=== PATIENT | male | born 1995 | race Caucasian/White ===

== ENCOUNTER 2019-10-01 14:24 | Emergency (ER) | payer OTHER ==
--- NOTE | 2019-10-01 14:40 | ED Physician Documentation ---
History of Present Illness - Stated complaint Stated Complaint: RT HAND PX - Chief complaint Chief Complaint: Trauma Ext - Additonal information Additional information: This is a 24-year-old male presents with right hand his hand against a door around 1 week and impacted mostly area of his fifth and fourth metacarpals midshaft region. He had some pain immediately afterwards and is persisted throughout the week. He is tried some Tylenol intermittently without significant relief. He denies any weakness or numbness. Review of Systems Skin: denies: Laceration (s) Musculoskeletal: reports: Extremity pain PD PAST MEDICAL HISTORY - Allergies Allergies/Adverse Reactions: Allergies Allergy/AdvReac Type Severity Reaction Status Date / Time naproxen Allergy Rash Verified 10/01/19 14:35 - Social History Does the pt have substance abuse?: No - Family History Family history: reports: Non contributory PD ED PE NORMAL - General General: Alert and oriented X 3 - HEENT HEENT: Atraumatic - Cardiac Cardiac: Strong equal pulses - Respiratory Respiratory: No respiratory distress - Extremities Extremities: Other (Right hand is symmetric in appearance to the left and is atraumatic. Patient has full range of motion of P and DIP joints in all digits. He does have some tenderness over the mid fourth and fifth metacarpal, no crepitus felt. There is no overlying skin lesion or contusion. His scaphoid distal radius and distal ulna are atraumatic and nontender.) Results - Vitals Vitals: Vital Signs - 24 hr 10/01/19 14:35 Temperature 36.7 C Heart Rate 86 Respiratory 15 Rate Blood Pressure 141/73 H O2 Saturation 98 Oxygen O2 Source Room air PD MEDICAL DECISION MAKING - ED course ED course: Patient presents with pain in his fourth and fifth right metacarpals. His hand is neurovascularly intact. There is no palpable crepitus. X-rays are obtained which do not show any acute osseous abnormality. I discussed supportive care with the patient and the possibility of occult fracture and follow-up with his primary care provider in 1 week if he is not having improved symptoms. Patient agrees with this plan and was discharged home. Departure - Departure Disposition: 01 Home, Self Care Clinical Impression: Hand pain Qualifiers: Laterality: right Qualified Code(s): M79.641 - Pain in right hand Condition: Good Follow-Up: LILLIAM SANCHES III, MD [Primary Care Provider] - Within 1 week (If having persistent symptoms) Comments: You were seen today for pain in your hand, the x-ray does not show any signs of fractures or other obvious bone abnormalities. I think is likely that you have a contusion or bruise of the bone. However if you are having continued not improving pain in 1 week please follow-up with your primary care provider for reevaluation and consideration of a repeat x-ray.
--- NOTE | 2019-10-01 15:20 | XRAY Report ---
Reason: Right hand pain after impact 1 week ago Procedure Date: 10/01/2019 Accession Number: [id number] / [id number] Procedure: XR - Hand 3 View RT CPT Code: Final Report FULL RESULT: EXAM: RIGHT HAND RADIOGRAPHY EXAM DATE: 10/01/2019 02:54 PM. CLINICAL HISTORY: Right hand pain after impact injury 1 week ago. COMPARISON: None. TECHNIQUE: 3 views. FINDINGS: Bones: No fracture or bone lesion. Joints: Normal. No subluxations. Soft Tissues: Normal. No evident focal soft tissue swelling. IMPRESSION: Normal hand radiography. [facility]
[2019-10-01 15:32] VITALS: BP 137/70
== END 2019-10-01 15:33 | disposition home or self-care (01) ==
LOC: ED 14:24
DX: M79.641 Pain in right hand (principal)
CPT/HCPCS: 99282; 99283

== ENCOUNTER 2020-03-08 20:15 | Emergency (ER) | payer OTHER ==
[2020-03-08 20:20] VITALS: BP 150/87
[2020-03-08] MEDS ORDERED: LIDOCAINE 1%-EPI 1:100000 20 ML MDV SUBQ STA (20:26)
[2020-03-08] MEDS ORDERED: HYDROcod/ACET 5/325 Prepack 4 PO STA (20:26)
--- NOTE | 2020-03-08 20:27 | ED Physician Documentation ---
History of Present Illness - Stated complaint Stated Complaint: MALE - Chief complaint Chief Complaint: General - History obtained from History obtained from: Patient (24-year-old gentleman has occasional problems with thrombosed hemorrhoids and has had pain from the current one for the last 2 days.) Review of Systems Constitutional: reports: Reviewed and negative Cardiac: reports: Reviewed and negative Respiratory: reports: Reviewed and negative PD PAST MEDICAL HISTORY - Past Medical History Cardiovascular: None Respiratory: None Neuro: None Endocrine/Autoimmune: None GI: None : None HEENT: None Psych: None Musculoskeletal: None Derm: None - Past Surgical History Past Surgical History: Yes HEENT: Rhinoplasty - Present Medications Home Medications: Ambulatory Orders Medication Instructions Recorded Confirmed No Known Home Medications 03/08/20 03/08/20 - Allergies Allergies/Adverse Reactions: Allergies Allergy/AdvReac Type Severity Reaction Status Date / Time naproxen Allergy Rash Verified 03/08/20 20:20 - Social History Does the pt smoke?: Yes Smoking Status: Current every day smoker Does the pt drink ETOH?: Yes Does the pt have substance abuse?: No - Immunizations Immunizations are current?: Yes - POLST Patient has POLST: No PD ED PE NORMAL - Vitals Vital signs reviewed: Yes - General General: Alert and oriented X 3, No acute distress - Abdomen Abdomen: Soft, Non tender - Rectal Rectal: Other (On the left side he has an acutely thrombosed tender hemorrhoid) - Neuro Neuro: Alert and oriented X 3, Normal speech Results - Vitals Vitals: Vital Signs - 24 hr 03/08/20 20:18 Temperature 37 C Heart Rate 101 H Respiratory 18 Rate Blood Pressure 150/87 H O2 Saturation 96 Oxygen O2 Source Room air Procedures - General procedure General procedure: Incision and drainage of hemorrhoid: Both verbal and written informed consent was obtained after discussion of the risks including but not limited to bleeding and infection. The area was prepped with iodine and the base of the hemorrhoid was infiltrated with about 8 mL of lidocaine with epinephrine. After an appropriate waiting. A small Incision was made in the hemorrhoid and the clot was expressed in its entirety. The patient tolerated this very well. Departure - Departure Disposition: 01 Home, Self Care Clinical Impression: Thrombosed external hemorrhoid Condition: Good Record reviewed to determine appropriate education?: Yes Instructions: ED Hemorrhoids Comments: You can take 1-2 Vicodin every 6 hours as needed for pain. He really should not have much pain now that the hemorrhoid has been drained. Return for new or worsening symptoms. Shallow warm baths several times a day to keep the area clean.
== END 2020-03-08 20:59 | disposition home or self-care (01) ==
LOC: ED 20:15
DX: K64.5 Perianal venous thrombosis (principal); F17.200 Nicotine dependence, unspecified, uncomplicated
CPT/HCPCS: 46083